=== PATIENT | female | born 1975 | race Caucasian/White ===

== ENCOUNTER 2017-04-17 16:42 | Emergency (ER) | payer OTHER ==
[2017-04-17 16:53] VITALS: BP 156/96; PULSE 108; TEMP 98.4; BMI 25.0
--- NOTE | 2017-04-17 16:56 | PDOC ---
Rapid Medical Evaluation Time Seen by Provider: 04/17/17 16:50 Medical Evaluation: Allergies Allergy/AdvReac Type Severity Reaction Status Date / Time amoxicillin trihydrate Allergy Mild Hives Verified 02/24/14 16:30 [From Augmentin] potassium clavulanate Allergy Mild Hives Verified 02/24/14 16:30 [From Augmentin] 04/17/17 16:51 Pt presents to the ED:anxiety, ran out of ativan 2 days during transition of new drs, states has not eaten 2 days Pt on brief exam: slightly tachycardic at 108, Pt ordered for: ua, utox, upreg Pt to proceed to the ED Discharge Disposition - Diagnosis Anxiety - Referrals - Patient Instructions - Post Discharge Activity
[2017-04-17 17:32] LABS: URINE APPEARANCE SLCLOUDY; URINE BILIRUBIN NEGATIVE (NEGATIVE); URINE BLOOD NEGATIVE (NEGATIVE); URINE COLOR LTYELLOW; URINE GLUCOSE (UA) NEGATIVE (NEGATIVE); URINE KETONE NEGATIVE (NEGATIVE); URINE LEUK ESTERASE NEGATIVE (NEGATIVE); URINE NITRITE NEGATIVE (NEGATIVE); URINE PROTEIN NEGATIVE (NEGATIVE); URINE UROBILINOGEN NEGATIVE mg/dL (0.2-1.0)
[2017-04-17 17:42] LABS: COCAINE, UR POSITIVE ng/ml (CUTOFF=300); METHADONE, UR NEGATIVE ng/ml (CUTOFF=300); PHENCYCLIDINE,URINE NEGATIVE ng/ml (CUTOFF=25); URINE AMPHETAMINES NEGATIVE ng/ml (CUTOFF=500); URINE BARBITURATES NEGATIVE ng/ml (CUTOFF=200); URINE BENZODIAZEPINES NEGATIVE ng/ml (CUTOFF=200)
[2017-04-17 17:43] LABS: OPIATES, URI POSITIVE ng/ml (CUTOFF=300)
[2017-04-17 17:56] LABS: HCG,QUALITATIVE URINE NEGATIVE
[2017-04-17] MEDS ORDERED: LORazepam 0.5 MG TABLET PO ONE (18:30)
--- NOTE | 2017-04-17 18:36 | PDOC ---
Attending Attestation - Resident Resident Name: GzumanMarty - ED Attending Attestation I have performed the following: I have examined & evaluated the patient, The case was reviewed & discussed with the resident, I agree w/resident's findings & plan, Exceptions are as noted - HPI HPI: 04/17/17 18:35 41 yo female in no acute distress seeks ativan for a panic attack HPI she has a h/o anxiety and takes ativan which she states she ran out off -pt id alert and conversant and in no acute distress - Physicial Exam PE: 04/17/17 18:36 wnwd 41 yo female seated on gurney. Appropriate affect -denies any suicidal ideology head ncat eyes german eomi neck supple lungs cta b/l cvs [id number] abd soft,nontender ext no edema,no rashes neuro axox3,ambulatory,no ataxia,motor stength 5/5 b/l psych ,calm,focused and fluent speech - Medical Decision Making 04/17/17 19:00 IMP anxiety plan anti anxiety meds recommend calling her psych center and getting an earlier appt
--- NOTE | 2017-04-17 18:37 | PDOC ---
History of Present Illness - General Chief Complaint: Psychiatric Stated Complaint: PANIC ATTACK Time Seen by Provider: 04/17/17 16:50 History Source: Patient Exam Limitations: No Limitations - History of Present Illness Initial Comments: 41F with pmh of Bipolar disorder and Panic disorder present to the ED after running out of meds lorazepam and Lurasidone yesterday. PAtient states that she has an appointment next week at her new psychiatric clinic on [address] [place]. She had a panic attack earlier today and would like a dose of ativan. Past History - Past Medical History Allergies/Adverse Reactions: Allergies amoxicillin trihydrate [From Augmentin] Allergy (Mild, Verified 04/17/17 16:50) Hives potassium clavulanate [From Augmentin] Allergy (Mild, Verified 04/17/17 16:50) Hives Home Medications: Ambulatory Orders Atorvastatin Ca [Lipitor] 20 mg PO DAILY 10/18/11 Insulin Lispro [Humalog] 30 unit SQ AM 10/18/11 Insulin Lispro [Humalog] 45 unit SQ HS 10/18/11 Lorazepam [Ativan] 2 mg PO QID 10/18/11 Oxycodone HCl/Acetaminophen [Percocet 5-325 mg Tablet] 1 - 2 combo PO Q4H Oxycodone HCl/Acetaminophen [Percocet 5-325 mg Tablet] 1 - 2 combo PO Q6H #20 tablet 10/18/11 Zolpidem Tartrate [Ambien] 10 mg PO HS 10/18/11 Ciprofloxacin [Cipro -] 500 mg PO Q12H #20 tablet 02/24/14 Levetiracetam [Keppra -] 500 mg PO DAILY 02/24/14 Oxycodone HCl/Acetaminophen [Percocet 5-325 mg Tablet -] 1 tab PO Q6H PRN #4 tablet 02/24/14 LMP: 10/15/11 - Social History Smoking History: No Smoking Status: Former smoker Number of Cigarettes Per Day: 0 Alcohol Use: none Drug Use: none *Review of Systems - Review of Systems Able to Perform ROS?: Yes Constitutional: No: Symptoms Reported HEENTM: No: Symptoms Reported Respiratory: No: Symptoms reported Cardiac (ROS): No: Symptoms Reported ABD/GI: No: Symptoms Reported : No: Symptoms Reported Musculoskeletal: No: Symptoms Reported Integumentary: No: Symptoms Reported Neurological: No: Symptoms reported Psychiatric: Yes: Anxiety, Depression, Emotional Problems, Mood Swings All Other Systems: Reviewed and Negative *Physical Exam - Vital Signs Last Vital Signs Temp Pulse Resp BP Pulse Ox 98.4 F 108 H 17 156/96 96 04/17/17 16:50 04/17/17 16:50 04/17/17 16:50 04/17/17 16:50 04/17/17 16:50 - Physical Exam General Appearance: Yes: Nourished, Appropriately Dressed. No: Alcohol on Breath HEENT: positive: EOMI, SARWAT, Normal ENT Inspection Neck: negative: Tender Respiratory/Chest: positive: Lungs Clear, Normal Breath Sounds. negative: Chest Tender, Respiratory Distress Cardiovascular: positive: Regular Rhythm, S1, S2, Tachycardia Gastrointestinal/Abdominal: positive: Normal Bowel Sounds, Flat, Soft. negative : Tender Musculoskeletal: positive: Normal Inspection Extremity: positive: Normal Capillary Refill Integumentary: positive: Normal Color, Dry, Warm Neurologic: positive: Fully Oriented, Alert, Normal Mood/Affect, Normal Response , Motor Strength 5/5 Plan - Progress Note Progress Note: 04/17/17 18:41 Patient given .5mg Ativan, Counseled to go to the [facility] for longer prescription of Psych meds. - Order(s) Order(s): Orders last 12 hours Category Date Time Status EKG [ELECTROCARDIOGRAM] [CARD] Stat Cardiology 04/17/17 18:00 Ordered - Laboratory Lab/Micro Results: 04/17/17 04/17/17 17:10 17:10 Urine Color Ltyellow Urine Appearance Slcloudy Urine pH 6.0 Ur Specific [place] 1.010 Urine Protein Negative Urine Glucose (UA) Negative Urine Ketones Negative Urine Blood Negative Urine Nitrite Negative Urine Bilirubin Negative Urine Urobilinogen Negative Ur Leukocyte Esterase Negative Urine HCG, Qual Negative Opiates Screen Positive Methadone Screen Negative Barbiturate Screen Negative Phencyclidine Screen Negative Ur Amphetamines Screen Negative MDMA (Ecstasy) Screen Negative Benzodiazepines Screen Negative Cocaine Screen Positive U Marijuana (THC) Screen Negative *DC/Admit/Observation/Transfer Diagnosis at time of Disposition: Anxiety - Discharge Dispostion Disposition: HOME Admit: No - Referrals Referrals: Carlo Akers MD [Primary Care Provider] - - Patient Instructions Printed Discharge Instructions: Anxiety and Panic Attacks (Alternative Therapy) , Yoga May Help Reduce Anxiety and Stress Additional Instructions: Please come back to the ED for any new, worsening or concerning symptoms. Go to [facility] For any psychiatric help with medication or otherwise. - Post Discharge Activity
[2017-04-17] MEDS ORDERED: LORazepam 0.5 MG TABLET ONE (18:58)
== END 2017-04-17 19:01 | disposition home or self-care (01) ==
LOC: JER 16:42
DX: F41.9 Anxiety disorder, unspecified (principal); F31.9 Bipolar disorder, unspecified
CPT/HCPCS: 80307; 81003; 84703; 99281-25

== ENCOUNTER 2017-07-11 17:05 | Emergency (ER) | payer OTHER ==
[2017-07-11 17:35] VITALS: BP 136/100; PULSE 120; TEMP 99.8; BMI 24.2
--- NOTE | 2017-07-11 17:37 | PDOC ---
Rapid Medical Evaluation Time Seen by Provider: 07/11/17 17:32 Medical Evaluation: Allergies Allergy/AdvReac Type Severity Reaction Status Date / Time amoxicillin trihydrate Allergy Mild Hives Verified 07/11/17 17:32 [From Augmentin] potassium clavulanate Allergy Mild Hives Verified 07/11/17 17:32 [From Augmentin] 07/11/17 17:34 I have performed a brief in-person evaluation of this patient. The patient presents with a chief complaint of infection of lesion on face. Patient reports pimples noted under left eye 2 days ago, states she placed a warm compress to the area and it became inflammed, erythematous and painful. Denies blurred vision Pertinent physical exam finding are +redness and swelling noted under left eye, PERRLA, EOMI lungs clear bilaterally I will defer orders to provider caring for patient The patient will proceed to the ED for further evaluation. Discharge Disposition - Referrals Referrals: Cynthia Casper [Primary Care Provider] - - Patient Instructions - Post Discharge Activity
--- NOTE | 2017-07-11 18:54 | PDOC ---
History of Present Illness <Amalia Pool - Last Filed: 07/11/17 19:50> - General History Source: Patient Exam Limitations: No Limitations - History of Present Illness Initial Comments: 07/11/17 19:11 The patient is a 41 year old female, with a significant past medical history of chronic back pain, hypertension, and mood disorders, who presents to the emergency department with, four days of left eye swelling and pain. As per patient, she had what she believe was a pimple on her left lower eye which she popped four days ago. Since then she reports worsening swelling around the lesion of the eye with mild periorbital edema and associated pain. The patient reports putting hydrocortisone cream and warm compresses to the eye. She denies recent fevers, chills, headache or dizziness. She denies recent nausea, vomit, diarrhea or constipation. She denies recent dysuria, frequency, urgency or hematuria. She denies recent chest pain or shortness of breath. Social history: Former smoker. Denies EtOH use and recreational drug use. Primary Care Physician: Dr. Casper <Vani Monahan - Last Filed: 07/11/17 19:59> - General Chief Complaint: Eye Problem Stated Complaint: Eye Problem Time Seen by Provider: 07/11/17 17:32 Past History - Past Medical History COPD: No Diabetes: Yes Seizures: Yes - Surgical History Neurologic Surgery: Yes Orthopedic Surgery: Yes (spinal fusion) - Suicide/Smoking/Psychosocial Hx Smoking Status: No Smoking History: Former smoker Have you smoked in the past 12 months: No Number of Cigarettes Smoked Daily: 0 Information on smoking cessation initiated: No Hx Alcohol Use: No Drug/Substance Use Hx: No <Amalia Pool - Last Filed: 07/11/17 19:50> <Vani Monahan - Last Filed: 07/11/17 19:59> - Past Medical History Allergies/Adverse Reactions: Allergies Allergy/AdvReac Type Severity Reaction Status Date / Time amoxicillin trihydrate Allergy Mild Hives Verified 07/11/17 17:32 [From Augmentin] potassium clavulanate Allergy Mild Hives Verified 07/11/17 17:32 [From Augmentin] Home Medications: Ambulatory Orders Atorvastatin Ca [Lipitor] 20 mg PO DAILY 10/18/11 Insulin Lispro [Humalog] 30 unit SQ AM 10/18/11 Insulin Lispro [Humalog] 45 unit SQ HS 10/18/11 LORazepam [Ativan] 2 mg PO QID 10/18/11 Oxycodone HCl/Acetaminophen [Percocet 5-325 mg Tablet] 1 - 2 combo PO Q6H #20 tablet 10/18/11 Albuterol Sulfate Inhaler - [Ventolin HFA Inhaler -] 1 - 2 inh PO Q4H 07/11/17 Sulfamethoxazole/Trimethoprim [Bactrim Ds -] 1 tab PO BID #20 tablet 07/11/17 Review of Systems - Review of Systems Able to Perform ROS?: Yes Comments:: 07/11/17 19:11 CONSTITUTIONAL: Absent: fever, no chills, no fatigue EYES: Present: Edema and pain to the left eye. Absent: visual changes ENT: Absent: ear pain, no sore throat CARDIOVASCULAR: Absent: chest pain, no palpitations RESPIRATORY: Absent: cough, no SOB GI: Absent: abdominal pain, no nausea, no vomiting, no constipation, no diarrhea GENITOURINARY: Absent: dysuria, no frequency, no hematuria MUSKULOSKELETAL: Absent: back pain, no arthralgia, no myalgia SKIN: Absent: rash NEURO: Absent: headache All Other Systems: Reviewed and Negative <Vani Monahan - Last Filed: 07/11/17 19:59> *Physical Exam - Vital Signs Last Vital Signs Temp Pulse Resp BP Pulse Ox 99.8 F H 120 H 19 136/100 97 07/11/17 17:32 07/11/17 17:32 07/11/17 17:32 07/11/17 17:32 07/11/17 17:32 <Amalia Pool - Last Filed: 07/11/17 19:50> - Vital Signs Last Vital Signs Temp Pulse Resp BP Pulse Ox 99.8 F H 120 H 19 136/100 97 07/11/17 17:32 07/11/17 17:32 07/11/17 17:32 07/11/17 17:32 07/11/17 17:32 - Physical Exam Comments: 07/11/17 19:12 GENERAL: Well-appearing, well-nourished. No apparent distress. (+)HEENT: +Swelling under the left eye with a small punctate. Discoloration with edema, erythema, and a dry patch under the left eye without cellulitis and streaking. Mild periorbital edema. PERRL, EOM intact. CARDIOVASCULAR: Normal S1, S2. Regular rate and rhythm. PULMONARY: Clear to auscultation bilaterally. ABDOMEN: Soft, non-distended, non-tender. EXTREMITIES: Normal ROM in all four extremities. No gross deformities. SKIN: Warm, dry. No rash NEUROLOGICAL: No focal neurological deficits. <Vani Monahan - Last Filed: 07/11/17 19:59> Medical Decision Making - Medical Decision Making 07/11/17 19:50 A/P: Patient with lesion to left upper cheek under the eye with periorbital edema she reports having a small pimple and squeezed it 2 days ago, her cousin gave her hydrocortisone cream which he applied to the area and caused a topical burn. Patient with edema to the area. I have referred patient to dermatology she must be seen as soon as possible, I will start patient on Bactrim. I've asked patient to apply cool compresses to not rub or scratch or squeezing area. <Amalia Pool - Last Filed: 07/11/17 19:50> *DC/Admit/Observation/Transfer - Discharge Dispostion Admit: No <Amalia Pool - Last Filed: 07/11/17 19:50> - Attestations Scribe Attestion: 07/11/17 19:12 Documentation prepared by Vani Monahan, acting as medical biller coder for Amalia Pool NP. <Vani Monahan - Last Filed: 07/11/17 19:59> Diagnosis at time of Disposition: Skin lesion - Discharge Dispostion Disposition: HOME Condition at time of disposition: Stable - Prescriptions Prescriptions: Sulfamethoxazole/Trimethoprim [Bactrim Ds -] 1 tab PO BID #20 tablet - Referrals Referrals: Jayson Anna [Non Staff, Medical] - ([phone], they are located on the 5th floor of [address] [place] [address]. ) - Patient Instructions Additional Instructions: Please do not rub or scratch area, recommend follow-up with dermatology as soon as possible. Please call tomorrow for an appointment. - Post Discharge Activity Forms/Work/School Notes: Back to Work
== END 2017-07-11 19:12 | disposition home or self-care (01) ==
LOC: JERFT 17:05
DX: L98.8 Other specified disorders of the skin and subcutaneous tissue (principal)
CPT/HCPCS: 99281-25

== ENCOUNTER 2019-02-25 21:57 | Emergency (ER) | payer OTHER ==
--- NOTE | 2019-02-25 22:34 | PDOC ---
History of Present Illness - General Stated Complaint: BACK PAIN Time Seen by Provider: 02/25/19 22:17 History Source: Patient Exam Limitations: No Limitations Past History - Past Medical History Allergies/Adverse Reactions: Allergies Allergy/AdvReac Type Severity Reaction Status Date / Time amoxicillin trihydrate Allergy Mild Hives Verified 07/11/17 17:32 [From Augmentin] potassium clavulanate Allergy Mild Hives Verified 07/11/17 17:32 [From Augmentin] Home Medications: Ambulatory Orders Atorvastatin Ca [Lipitor] 20 mg PO DAILY 10/18/11 Insulin Lispro [Humalog] 30 unit SQ AM 10/18/11 Insulin Lispro [Humalog] 45 unit SQ HS 10/18/11 LORazepam [Ativan] 2 mg PO QID 10/18/11 Oxycodone HCl/Acetaminophen [Percocet 5-325 mg Tablet] 1 - 2 combo PO Q6H #20 tablet 10/18/11 Albuterol Sulfate Inhaler - [Ventolin HFA Inhaler -] 1 - 2 inh PO Q4H 07/11/17 Sulfamethoxazole/Trimethoprim [Bactrim Ds -] 1 tab PO BID #20 tablet 07/11/17 COPD: No Diabetes: Yes Seizures: Yes - Surgical History Neurologic Surgery: Yes Orthopedic Surgery: Yes (spinal fusion) - Psycho Social/Smoking Cessation Hx Smoking Status: No Smoking History: Former smoker Have you smoked in the past 12 months: No Number of Cigarettes Smoked Daily: 0 Hx Alcohol Use: No Drug/Substance Use Hx: No ED Treatment Course - LABORATORY CBC & Chemistry Diagram: 02/25/19 23:15 02/25/19 23:15 Medical Decision Making - Medical Decision Making 02/26/19 02:36 43 yo presents to the ED after a fall with right sided back pain. States daughter were present, did not hit head, denies CP, palpitations or SOB prior to or after the fall, denies ABARCA or any unilateral neuro deficits. Pt had recent MRI without cord compression, exam negative for concerning neuro findings. No stepoffs Pt able to ambulate right after the the fall and ambulates without difficulty in the ED EKG NSR without ischemic changes or arrhythmia Labs, EKG and CXR reviewed, neg for concerning findings 2 Trops neg Pt given toradol for pain states that the pain is still severe, offered oxycodone home does, pt states she needs "stronger IV medication" however is able to ambulate without difficulty Discussed with pt that she needs to follow up with pain management and [facility]. Discharge - Discharge Information Problems reviewed: Yes Clinical Impression/Diagnosis: Chronic low back pain, Vasovagal near syncope Condition: Stable Disposition: HOME - Admission No - Follow up/Referral Referrals: Cynthia Casper [Primary Care Provider] - - Patient Discharge Instructions Patient Printed Discharge Instructions: Low Back Pain Additional Instructions: Please see your [facility] and Primary Doctor within the next 48 hours. See your pain management doctor for control of your back pain. Please continue taking your home dosed medications as prescribed. Return to the closest ER for new or concerning findings including but not limited to: loss of consciousness, falls, chest pain, shortness of breath. Thank you - Post Discharge Activity
[2019-02-25 22:39] VITALS: BMI 26.9
[2019-02-25 23:25] LABS: BASO % 0.5 % (0-2.0); EOS % 1.3 % (0-4.5); HEMATOCRIT 34.9 % (32.4-45.2); HEMOGLOBIN 11.7 GM/dL (10.7-15.3); LYMPH % 20.5 % (8-40); MCH 32.5 pg (25.7-33.7); MCHC 33.4 g/dl (32.0-36.0); MEAN CELL VOLUME 97.3 fl (80-96); MEAN PLT VOLUME 6.8 fl (7.5-11.1); MONO % 5.7 % (3.8-10.2); PLATELET COUNT 321 K/MM3 (134-434); RBC 3.59 M/mm3 (3.60-5.2); WHITE BLOOD COUNT 11.5 K/mm3 (4.0-10.0)
[2019-02-25 23:38] LABS: INR 0.87 (0.83-1.09); PROTHROMBIN TIME (PATIENT) 10.3 SEC (9.7-13.0)
[2019-02-25 23:57] LABS: ALBUMIN 3.3 g/dl (3.4-5.0); ALK PHOS 72 U/L (45-117); ANION GAP 7 MMOL/L (8-16); BILIRUBIN,TOTAL 0.1 mg/dL (0.2-1); CALCIUM 8.8 mg/dL (8.5-10.1); CHLORIDE 104 mmol/L (98-107); CO2 30 mmol/L (21-32); CREATININE 0.7 mg/dL (0.55-1.3); GLUCOSE,RANDOM 112 mg/dL (74-106); N-TERMINAL BNP 8.2 pg/ml (5-125); POTASSIUM 3.6 mmol/L (3.5-5.1); SGOT/AST 22 U/L (15-37); SGPT/ALT 23 U/L (13-61); SODIUM 141 mmol/L (136-145); TOT PROT 6.8 g/dl (6.4-8.2)
[2019-02-26] MEDS ORDERED: KETOROLAC TROMETHAMINE 30 MG/1 ML VIAL IVPUSH ONE (00:32)
[2019-02-26] MEDS ORDERED: ONDANSETRON 4 MG/2 ML VIAL IVPUSH ONE (00:33)
[2019-02-26] MEDS ORDERED: KETOROLAC TROMETHAMINE 30 MG/1 ML VIAL ONE (00:35)
[2019-02-26] MEDS ORDERED: ONDANSETRON 4 MG/2 ML VIAL ONE (00:36)
--- NOTE | 2019-02-26 01:27 | PDOC ---
Documentation entered by Estuardo Hernández SCRIBE, acting as scribe for Yenni Diaz MD. Yenni Diaz MD: This documentation has been prepared by the Edgar jackson Xhesika, SCRIBE, under my direction and personally reviewed by me in its entirety. I confirm that the documentation accurately reflects all work, treatment, procedures, and medical decision making performed by me. Attending Attestation - Resident Resident Name: PradeepemanuelJoseluis - ED Attending Attestation I have performed the following: I have examined & evaluated the patient, The case was reviewed & discussed with the resident, I agree w/resident's findings & plan, Exceptions are as noted - HPI HPI: 02/25/19 22:52 The patient is a 43 year old female with a significant PMH of DM, seizures, chronic back pain s/p spinal fusion, and mood disorder who presents to the emergency department with lower back pain s/p fall. The patient states she passed out, fell and hit her back. Patient notes she took 3 percocets throughout the day. The patient denies chest pain, shortness of breath, headache. Denies fever, chills, cough, nausea, vomiting, diarrhea and constipation. Denies dysuria, frequency, urgency and hematuria. Allergies: amoxicillin trihydrate, potassium clavulanate Past surgical history: spinal fusion Primary Care Physician: Dr. Casper 02/26/19 LABS REVIEWED AND patient ambulating in the ED plan second troponin , if negative will d/c home - Physicial Exam PE: 02/25/19 22:54 GENERAL: Awake, alert, and fully oriented HEAD: No signs of trauma. No lacerations NECK: Normal ROM, supple, no lymphadenopathy, JVD, or masses LUNGS: Breath sounds equal, clear to auscultation bilaterally. No wheezes, and no crackles HEART: +slightly tachycardic. no murmurs, rubs or gallops ABDOMEN: Soft, nontender, normoactive bowel sounds. No guarding, no rebound. No masses EXTREMITIES: + R iliac crest pain to palpation. No pinpoint midline tenderness. No clubbing or cyanosis. No cords, erythema SKIN: Warm, Dry, normal turgor, no rashes or lesions noted. - Medical Decision Making 02/26/19 01:26 Patient is ambulating the ER after receiving Toradol Labs reviewed The plan is to do a repeat troponin and if it is negative she can go home
[2019-02-26 02:22] VITALS: BP 112/80; PULSE 98; TEMP 98.1
--- NOTE | 2019-02-26 10:36 | EKG ---
Test Reason : Blood Pressure : / mmHG Vent. Rate : 107 BPM Atrial Rate : 107 BPM P-R Int : 138 ms QRS Dur : 074 ms QT Int : 334 ms P-R-T Axes : 059 056 019 degrees QTc Int : 445 ms SINUS TACHYCARDIA NONSPECIFIC T WAVE ABNORMALITY ABNORMAL ECG Confirmed by MD ANNAMARIE, SARAH ([id number]) on 02/26/2019 10:36:03 AM Referred By: Confirmed By:SARAH DE LUNA MD
== END 2019-02-26 04:32 | disposition home or self-care (01) ==
LOC: JER 21:57
PROC: 3E033GC Introduction of Other Therapeutic Substance into Peripheral Vein, Percutaneous Approach (ICD-10-PCS; principal; 2019-02-25)
PROC: 3E0333Z Introduction of Anti-inflammatory into Peripheral Vein, Percutaneous Approach (ICD-10-PCS; 2019-02-25)
DX: M54.5 Low back pain (principal); R55 Syncope and collapse; W01.0XXA Fall on same level from slipping, tripping and stumbling without subsequent striking against object, initial encounter; Y93.89 Activity, other specified; Y92.89 Other specified places as the place of occurrence of the external cause; Y99.8 Other external cause status; E11.9 Type 2 diabetes mellitus without complications; Z79.4 Long term (current) use of insulin; G40.909 Epilepsy, unspecified, not intractable, without status epilepticus; E78.00 Pure hypercholesterolemia, unspecified; F39 Unspecified mood [affective] disorder; Z98.1 Arthrodesis status; Z88.1 Allergy status to other antibiotic agents; Z87.891 Personal history of nicotine dependence
CPT/HCPCS: 36415; 71046-TC-FY; 80053; 82550; 82962; 83880; 84484; 84703; 85025; 85610; 93005; 93010; 96374; 96375; 99284-25

== ENCOUNTER 2020-06-18 18:49 | Emergency (ER) | payer OTHER ==
[2020-06-18 19:08] VITALS: TEMP 98.6; BMI 23.5
[2020-06-18] MEDS ORDERED: IBUPROFEN 600 MG TABLET (FP) PO ONE ×2 (20:21→20:24)
[2020-06-18] MEDS ORDERED: LIDOCAINE 5% TOPICAL PATCH TP ONE (21:53)
[2020-06-18 21:55] VITALS: BP 149/94; PULSE 104
[2020-06-18] MEDS ORDERED: LIDOCAINE 5% TOPICAL PATCH ONE (21:56)
[2020-06-18] MEDS ORDERED: LIDOCAINE PATCH REMOVAL MC SCH (22:00)
== END 2020-06-18 22:40 | disposition home or self-care (01) ==
LOC: JER 18:49
DX: M54.5 Low back pain (principal)
CPT/HCPCS: 72131-TC; 84703; 99284-25; C9803; U0003

== ENCOUNTER 2020-08-11 12:26 | Emergency (ER) | payer OTHER ==
[2020-08-11 12:31] VITALS: TEMP 98.6; BMI 25.8
[2020-08-11] MEDS ORDERED: ONDANSETRON 4 MG/2 ML VIAL IVPUSH ONE (12:46)
[2020-08-11] MEDS ORDERED: SODIUM CHLORIDE 1,000 ML IV STA (12:46)
[2020-08-11] MEDS ORDERED: ONDANSETRON 4 MG/2 ML VIAL ONE ×2 (13:25→13:41)
[2020-08-11 13:30] LABS: BASO % 0.2 % (0-2.0); HEMATOCRIT 36.4 % (32.4-45.2); HEMOGLOBIN 12.7 GM/dL (10.7-15.3); LYMPH % 8.9 % (8-40); MCH 32.7 pg (25.7-33.7); MCHC 34.9 g/dl (32.0-36.0); MEAN CELL VOLUME 93.6 fl (80-96); MEAN PLT VOLUME 7.4 fl (7.5-11.1); MONO % 9.4 % (3.8-10.2); NEUT % 81.5 % (42.8-82.8); PLATELET COUNT 169 K/MM3 (134-434); RBC 3.89 M/mm3 (3.60-5.2); RDW 13.2 % (11.6-15.6); WHITE BLOOD COUNT 6.3 K/mm3 (4.0-10.0)
[2020-08-11] MEDS ORDERED: METOCLOPRAMIDE HCL INJECTION 10 MG/2 ML VIAL IVPUSH ONE (13:51)
[2020-08-11 13:52] LABS: BLOOD UREA NITROGEN 10.8 mg/dL (7-18); CALCIUM 8.7 mg/dL (8.5-10.1)
[2020-08-11 13:55] LABS: CREATININE 0.7 mg/dL (0.55-1.3)
[2020-08-11 13:57] LABS: BILIRUBIN,TOTAL 0.2 mg/dL (0.2-1); TOT PROT 7.9 g/dl (6.4-8.2)
[2020-08-11] MEDS ORDERED: METOCLOPRAMIDE HCL INJECTION 10 MG/2 ML VIAL ONE (14:09)
[2020-08-11 14:21] LABS: HCG,QUALITATIVE URINE Negative
[2020-08-11 14:22] LABS: EPI CELLS >36 /uL (0-25.1); HYALINE CASTS 9 /uL (0-3.1); PH,URINE 5.5 (5.0-8.0); URINE APPEARANCE CLOUDY; URINE BACTERIA 4116 /uL (0-1359); URINE BILIRUBIN 1+ (NEGATIVE); URINE COLOR DK YELLOW; URINE GLUCOSE (UA) NEGATIVE (NEGATIVE); URINE KETONE 1+ (NEGATIVE); URINE LEUK ESTERASE NEGATIVE (NEGATIVE); URINE NITRITE NEGATIVE (NEGATIVE); URINE PROTEIN 2+ (NEGATIVE); URINE WBC 21 /uL (0-25.8)
[2020-08-11 14:57] LABS: YEAST PRESENT (NEGATIVE)
[2020-08-11] MEDS ORDERED: LORazepam 2 MG/ML SDV VIAL IVPUSH ONE (15:01)
[2020-08-11] MEDS ORDERED: LORazepam 2 MG/ML SDV VIAL ONE (15:13)
[2020-08-11 16:05] VITALS: BP 122/76; PULSE 88
== END 2020-08-11 16:04 | disposition home or self-care (01) ==
LOC: JER 12:26
PROC: 3E033NZ Introduction of Analgesics, Hypnotics, Sedatives into Peripheral Vein, Percutaneous Approach (ICD-10-PCS; principal; 2020-08-11)
PROC: 3E033GC Introduction of Other Therapeutic Substance into Peripheral Vein, Percutaneous Approach (ICD-10-PCS; 2020-08-11)
PROC: 3E033GC Introduction of Other Therapeutic Substance into Peripheral Vein, Percutaneous Approach (ICD-10-PCS; 2020-08-11)
PROC: 3E0337Z Introduction of Electrolytic and Water Balance Substance into Peripheral Vein, Percutaneous Approach (ICD-10-PCS; 2020-08-11)
DX: N39.0 Urinary tract infection, site not specified (principal); R11.2 Nausea with vomiting, unspecified
CPT/HCPCS: 36415; 80053; 81003; 83690; 84703; 85025; 87086; 96361; 96374; 96375; 99284-25

== ENCOUNTER 2021-01-29 12:03 | Emergency (ER) | payer OTHER ==
[2021-01-29 12:09] VITALS: BP 141/95; PULSE 101; TEMP 98.6; BMI 25.8
[2021-01-29] MEDS ORDERED: LIDOCAINE 5% TOPICAL PATCH TP ONE (14:21)
[2021-01-29] MEDS ORDERED: METHOCARBAMOL 500 MG TABLET PO ONE (14:21)
[2021-01-29] MEDS ORDERED: KETOROLAC TROMETHAMINE 60 MG/2 ML VIAL IM ONE (14:21)
[2021-01-29] MEDS ORDERED: KETOROLAC TROMETHAMINE 60 MG/2 ML VIAL ONE (14:25)
[2021-01-29] MEDS ORDERED: LIDOCAINE 5% TOPICAL PATCH ONE (14:26)
[2021-01-29] MEDS ORDERED: METHOCARBAMOL 500 MG TABLET ONE (14:26)
== END 2021-01-29 16:06 | disposition home or self-care (01) ==
LOC: JERFT 12:03
PROC: 3E0233Z Introduction of Anti-inflammatory into Muscle, Percutaneous Approach (ICD-10-PCS; principal; 2021-01-29)
DX: M54.42 Lumbago with sciatica, left side (principal)
CPT/HCPCS: 96372; 99284-25

== ENCOUNTER 2022-01-23 03:02 | Emergency (ER) | payer OTHER ==
[2022-01-23] MEDS ORDERED: LIDOCAINE VISCOUS 2% ORAL/TOP 100 ML BOTTLE MM ONE (03:24)
[2022-01-23] MEDS ORDERED: ONDANSETRON 4 MG/2 ML VIAL IVPUSH ONE (03:24)
[2022-01-23] MEDS ORDERED: FAMOTIDINE 20 MG/50 ML IVPB 20 MG/50 ML MG IVPB ONE ×2 (03:24→03:52)
[2022-01-23] MEDS ORDERED: MAG HYDROX/AL HYDROX/SIMETH 30 ML UNIT-DOSE CUP PO ONE (03:24)
[2022-01-23] MEDS ORDERED: SODIUM CHLORIDE 0.9% 500 ML INFUS.BAG IV ONE (03:49)
[2022-01-23] MEDS ORDERED: ONDANSETRON 4 MG/2 ML VIAL ONE (03:52)
[2022-01-23] MEDS ORDERED: LIDOCAINE VISCOUS 2% ORAL/TOP 15 ML UNIT-DOSE CUP ONE (03:52)
[2022-01-23] MEDS ORDERED: MAG HYDROX/AL HYDROX/SIMETH 30 ML UNIT-DOSE CUP ONE (03:52)
[2022-01-23 03:57] VITALS: BMI 27.6
[2022-01-23] MEDS ORDERED: ACETAMINOPHEN 1000 MG/100 ML BAG IVPB ONE (04:33)
[2022-01-23 04:37] LABS: BASO % 0.8 % (0-2.0); EOS % 1.4 % (0-4.5); HEMATOCRIT 35.3 % (32.4-45.2); HEMOGLOBIN 11.9 GM/dL (10.7-15.3); LYMPH % 13.8 % (8-40); MCH 32.4 pg (25.7-33.7); MCHC 33.6 g/dl (32.0-36.0); MEAN CELL VOLUME 96.2 fl (80-96); MEAN PLT VOLUME 6.5 fl (7.5-11.1); MONO % 5.3 % (3.8-10.2); NEUT % 78.7 % (42.8-82.8); PLATELET COUNT 375 10^3/uL (134-434); RBC 3.67 M/mm3 (3.60-5.2); RDW 13.4 % (11.6-15.6); WHITE BLOOD COUNT 10.9 K/mm3 (4.0-10.0)
[2022-01-23] MEDS ORDERED: ACETAMINOPHEN INJECTION 100 ML IVPB ONE (04:44)
[2022-01-23 04:49] LABS: ALBUMIN 3.8 g/dl (3.4-5.0); BLOOD UREA NITROGEN 24.3 mg/dL (7-18)
[2022-01-23 04:51] LABS: CREATININE 0.9 mg/dL (0.55-1.3)
[2022-01-23 04:53] LABS: BILIRUBIN,TOTAL 0.2 mg/dL (0.2-1); TOT PROT 7.5 g/dl (6.4-8.2)
[2022-01-23] MEDS ORDERED: PANTOPRAZOLE 40 MG TABLET PO ONE (05:31)
[2022-01-23] MEDS ORDERED: PANTOPRAZOLE 20 MG TABLET PO ONE (05:33)
[2022-01-23 05:40] VITALS: BP 136/78; PULSE 72; RESP 18
== END 2022-01-23 05:39 | disposition home or self-care (01) ==
LOC: JER 03:02
PROC: 3E033GC Introduction of Other Therapeutic Substance into Peripheral Vein, Percutaneous Approach (ICD-10-PCS; principal; 2022-01-23)
DX: K29.00 Acute gastritis without bleeding (principal)
CPT/HCPCS: 36415; 71045-TC-FY; 80053; 82962; 83690; 84484; 84703; 85025; 93005; 93010; 96365; 96375; 99285-25

== ENCOUNTER 2022-01-23 11:22 | Inpatient (IN) | payer OTHER ==
[2022-01-23] MEDS ORDERED: ONDANSETRON 4 MG/2 ML VIAL IVPUSH ONE ×2 (12:34→15:11)
[2022-01-23] MEDS ORDERED: FAMOTIDINE 20 MG/50 ML IVPB 20 MG/50 ML MG IVPB ONE ×2 (12:34→12:41)
[2022-01-23] MEDS ORDERED: morphine CARPU-JECT 2 MG/1 ML DISP.SYRIN IVPUSH ONE ×2 (12:35→19:49)
[2022-01-23] MEDS ORDERED: SODIUM CHLORIDE 0.9% 500 ML INFUS.BAG IV ONE (12:35)
[2022-01-23] MEDS ORDERED: ONDANSETRON 4 MG/2 ML VIAL ONE ×3 (12:40→18:08)
[2022-01-23] MEDS ORDERED: KETOROLAC TROMETHAMINE 30 MG/1 ML VIAL IVPUSH ONE (15:11)
[2022-01-23] MEDS ORDERED: SUCRALFATE 1 GM TABLET (FP) ONE (15:49)
[2022-01-23] MEDS ORDERED: KETOROLAC TROMETHAMINE 30 MG/1 ML VIAL ONE (15:50)
[2022-01-23] MEDS: SUCRALFATE 1 GM/10 ML UNIT DOSE CUPS PO ONE ×2 (15:56→16:07)
[2022-01-23] MEDS ORDERED: SUCRALFATE 1 GM/10 ML UNIT DOSE CUPS PO ONE (16:06)
[2022-01-23] MEDS ORDERED: morphine CARPU-JECT 4 MG/1 ML DISP.SYRIN IVPUSH ONE (18:01)
[2022-01-23] MEDS ORDERED: morphine SULFATE 4 MG/ML VIAL ONE (18:06)
[2022-01-23] MEDS: SODIUM CHLORIDE 1,000 ML IV SCH (18:07)
[2022-01-23] MEDS ORDERED: METOCLOPRAMIDE HCL INJECTION 10 MG/2 ML VIAL IVPUSH ONE (19:49)
[2022-01-23] MEDS ORDERED: METOCLOPRAMIDE HCL INJECTION 10 MG/2 ML VIAL ONE (19:56)
[2022-01-23] MEDS: INSULIN SLIDING SCALE (NOVOLOG) 1 VIAL SQ SCH (22:00)
[2022-01-23] MEDS ORDERED: ALBUTEROL SO4 HFA INHALER IH PRN (23:19)
[2022-01-23] MEDS ORDERED: TRIMETHOBENZAMIDE HCL 200MG/2ML INJ IM ONE (23:44)
[2022-01-23] MEDS: TRIMETHOBENZAMIDE HCL 200MG/2ML INJ IM PRN (23:54)
[2022-01-23] MEDS: clonazePAM 0.5 MG TABLET PO SCH (23:54)
[2022-01-24] MEDS: INSULIN SLIDING SCALE (NOVOLOG) 1 VIAL SQ SCH ×3 (02:19→13:52)
[2022-01-24 08:45] LABS: BASO % 0.2 % (0-2.0); EOS % 0.1 % (0-4.5); HEMATOCRIT 31.7 % (32.4-45.2); HEMOGLOBIN 10.6 GM/dL (10.7-15.3); LYMPH % 6.7 % (8-40); MCHC 33.4 g/dl (32.0-36.0); MEAN CELL VOLUME 95.8 fl (80-96); MEAN PLT VOLUME 6.6 fl (7.5-11.1); MONO % 9.3 % (3.8-10.2); NEUT % 83.7 % (42.8-82.8); PLATELET COUNT 372 10^3/uL (134-434); RBC 3.31 M/mm3 (3.60-5.2); RDW 13.2 % (11.6-15.6); WHITE BLOOD COUNT 13.7 K/mm3 (4.0-10.0)
[2022-01-24 08:50] LABS: INR 1.28 (0.83-1.09); PROTHROMBIN TIME (PATIENT) 14.7 SEC (9.7-13.0)
[2022-01-24 08:52] LABS: ACTIVATED PTT 28.5 SECONDS (25.2-36.5)
[2022-01-24] MEDS ORDERED: TRIMETHOBENZAMIDE HCL 200MG/2ML INJ IM ONE (09:04)
[2022-01-24] MEDS ORDERED: PANTOPRAZOLE SODIUM 40 MG VIAL ONE (09:04)
[2022-01-24] MEDS ORDERED: clonazePAM 0.5 MG TABLET ONE (09:04)
[2022-01-24 09:12] LABS: CALCIUM 8.6 mg/dL (8.5-10.1)
[2022-01-24 09:13] LABS: BLOOD UREA NITROGEN 7.2 mg/dL (7-18)
[2022-01-24 09:16] LABS: CREATININE 0.5 mg/dL (0.55-1.3); PHOSPHOROUS 2.3 mg/dL (2.5-4.9)
[2022-01-24] MEDS ORDERED: ACETAMINOPHEN INJECTION 100 ML IVPB ONE (09:17)
[2022-01-24 09:19] LABS: MAGNESIUM 1.8 mg/dL (1.8-2.4)
[2022-01-24] MEDS: clonazePAM 0.5 MG TABLET PO SCH (09:22)
[2022-01-24] MEDS: TRIMETHOBENZAMIDE HCL 200MG/2ML INJ IM PRN (09:22)
[2022-01-24] MEDS: ACETAMINOPHEN 1000 MG/100 ML BAG IVPB PRN (09:25)
[2022-01-24] MEDS ORDERED: PANTOPRAZOLE SODIUM 40 MG VIAL IVPUSH SCH (10:00)
[2022-01-24] MEDS ORDERED: LURASIDONE HCL 40 MG TABLET PO SCH (10:00)
[2022-01-24] MEDS ORDERED: risperiDONE 1 MG TABLET PO SCH (10:00)
[2022-01-24 13:31] VITALS: BMI 27.8
[2022-01-24] MEDS: SODIUM CHLORIDE 1,000 ML IV SCH ×2 (15:17→18:40)
[2022-01-24] MEDS: KCL 10 MEQ IVPB 10 MEQ/100 ML INFUS.BAG IVPB SCH ×2 (15:19→16:12)
[2022-01-24] MEDS ORDERED: PROPOFOL 20 ML ONE ×2 (18:46→23:15)
[2022-01-24] MEDS ORDERED: ROCURONIUM BROMIDE 50 MG/5 ML SYRINGE ONE (18:46)
[2022-01-24] MEDS ORDERED: MIDAZOLAM HCL 2 MG/2 ML SINGLE DOSE VIAL ONE (18:47)
[2022-01-24] MEDS ORDERED: SUCCINYLCHOLINE CHLORIDE 200 MG/10 ML SYRINGE ONE (18:48)
[2022-01-24] MEDS ORDERED: ePHEDrine SULFATE 50 MG/1 ML AMPULE ONE (18:48)
[2022-01-24] MEDS ORDERED: BUPIVACAINE HCL/PF 0.5% (5MG/ML) 10 ML VIAL ONE (18:51)
[2022-01-24] MEDS ORDERED: ONDANSETRON 4 MG/2 ML VIAL ONE (20:07)
[2022-01-24] MEDS ORDERED: FAMOTIDINE 20 MG/50 ML IVPB 20 MG/50 ML MG IVPB ONE ×2 (20:08→21:53)
[2022-01-24] MEDS ORDERED: ONDANSETRON 4 MG/2 ML VIAL IVPUSH PRN (21:53)
[2022-01-24] MEDS ORDERED: ATORVASTATIN CA 40 MG TABLET (FP) PO SCH (22:00)
[2022-01-24] MEDS ORDERED: LACTATED RINGERS SOLUTION 1,000 ML IV SCH (22:00)
[2022-01-24] MEDS ORDERED: BUPIVACAINE HCL/PF 0.25% (2.5MG/ML) 10 ML VIAL IJ ONE (22:50)
[2022-01-24] MEDS ORDERED: NEOSTIGMINE METHYLSULFATE 0.5 MG/ML - 10 ML MDV ONE (23:29)
[2022-01-24] MEDS ORDERED: KETOROLAC TROMETHAMINE 30 MG/1 ML VIAL ONE (23:50)
[2022-01-25] MEDS: ACETAMINOPHEN 1000 MG/100 ML BAG IVPB PRN (00:05)
[2022-01-25] MEDS ORDERED: ACETAMINOPHEN INJECTION 100 ML IVPB ONE (00:09)
[2022-01-25] MEDS: INSULIN SLIDING SCALE (NOVOLOG) 1 VIAL SQ SCH ×5 (00:13→20:27)
[2022-01-25] MEDS: clonazePAM 0.5 MG TABLET PO SCH ×3 (00:14→21:16)
[2022-01-25] MEDS ORDERED: ONDANSETRON 4 MG/2 ML VIAL IVPUSH PRN (00:17)
[2022-01-25] MEDS ORDERED: TRIMETHOBENZAMIDE HCL 200MG/2ML INJ IM PRN (00:17)
[2022-01-25] MEDS ORDERED: ALBUTEROL SO4 HFA INHALER IH PRN (00:17)
[2022-01-25] MEDS: LACTATED RINGERS SOLUTION 1,000 ML IV SCH ×2 (01:43→12:23)
[2022-01-25] MEDS: PANTOPRAZOLE SODIUM 40 MG VIAL IVPUSH SCH (09:44)
[2022-01-25] MEDS: risperiDONE 1 MG TABLET PO SCH (09:45)
[2022-01-25 10:59] LABS: HEMATOCRIT 29.7 % (32.4-45.2); HEMOGLOBIN 10.3 GM/dL (10.7-15.3); MCH 33.5 pg (25.7-33.7); MCHC 34.7 g/dl (32.0-36.0); MEAN CELL VOLUME 96.6 fl (80-96); MEAN PLT VOLUME 6.4 fl (7.5-11.1); PLATELET COUNT 332 10^3/uL (134-434); RBC 3.07 M/mm3 (3.60-5.2); WHITE BLOOD COUNT 13.1 K/mm3 (4.0-10.0)
[2022-01-25 11:35] LABS: BLOOD UREA NITROGEN 5.1 mg/dL (7-18); CALCIUM 8.9 mg/dL (8.5-10.1)
[2022-01-25 11:38] LABS: CREATININE 0.4 mg/dL (0.55-1.3)
[2022-01-25 11:40] LABS: BILIRUBIN,TOTAL 0.3 mg/dL (0.2-1); TOT PROT 6.3 g/dl (6.4-8.2)
[2022-01-25 11:44] LABS: ALBUMIN 2.9 g/dl (3.4-5.0)
[2022-01-25 11:53] LABS: ANISOCYTOSIS 0; HELMET CELLS 0; HOWELL-JOLLY BODIES 0; MACROCYTOSIS 0; OVALOCYTE 0; ROULEAU 0; SICKELED CELLS 0; TARGET CELLS 0; TEAR DROP CELLS 0; TOXIC GRANULATION 0
[2022-01-25] MEDS ORDERED: oxyCODONE HCL 5 MG TABLET PO PRN (13:18)
[2022-01-25] MEDS ORDERED: HYDROmorphone HCL CARPU-JECT 2 MG/1 ML DISP.SYRIN IVPB ONE (13:19)
[2022-01-25] MEDS ORDERED: HYDROmorphone HCl 2 MG/ML VIAL IVPB ONE (13:45)
[2022-01-25] MEDS: NAPH,MB-DB/K PH,MBDB POWDER PACKET PO SCH ×2 (13:55→21:17)
[2022-01-25] MEDS: LURASIDONE HCL 40 MG TABLET PO SCH (14:38)
[2022-01-25] MEDS: oxyCODONE HCL 5 MG TABLET PO PRN ×2 (17:00→20:35)
[2022-01-25] MEDS ORDERED: ACETAMINOPHEN 1000 MG/100 ML BAG IVPB ONE (17:51)
[2022-01-25] MEDS: ONDANSETRON 4 MG/2 ML VIAL IVPUSH PRN (18:01)
[2022-01-25] MEDS ORDERED: ATORVASTATIN CA 40 MG TABLET (FP) PO SCH (22:00)
[2022-01-26] MEDS: ONDANSETRON 4 MG/2 ML VIAL IVPUSH PRN (00:55)
[2022-01-26] MEDS: LACTATED RINGERS SOLUTION 1,000 ML IV SCH (02:00)
[2022-01-26] MEDS: oxyCODONE HCL 5 MG TABLET PO PRN ×3 (02:01→15:00)
[2022-01-26] MEDS: INSULIN SLIDING SCALE (NOVOLOG) 1 VIAL SQ SCH ×3 (02:06→15:41)
[2022-01-26] MEDS: PANTOPRAZOLE SODIUM 40 MG VIAL IVPUSH SCH (09:52)
[2022-01-26 09:58] LABS: BASO % 0.3 % (0-2.0); EOS % 1.6 % (0-4.5); HEMATOCRIT 29.4 % (32.4-45.2); LYMPH % 17.2 % (8-40); MCH 32.8 pg (25.7-33.7); MCHC 33.9 g/dl (32.0-36.0); MEAN CELL VOLUME 96.8 fl (80-96); MEAN PLT VOLUME 6.8 fl (7.5-11.1); MONO % 5.7 % (3.8-10.2); NEUT % 75.2 % (42.8-82.8); PLATELET COUNT 373 10^3/uL (134-434); RBC 3.04 M/mm3 (3.60-5.2); RDW 13.3 % (11.6-15.6); WHITE BLOOD COUNT 9.8 K/mm3 (4.0-10.0)
[2022-01-26 10:22] LABS: ALBUMIN 2.9 g/dl (3.4-5.0); CALCIUM 8.4 mg/dL (8.5-10.1)
[2022-01-26 10:23] LABS: BLOOD UREA NITROGEN 5.5 mg/dL (7-18)
[2022-01-26 10:25] LABS: CREATININE 0.5 mg/dL (0.55-1.3)
[2022-01-26 10:26] LABS: PHOSPHOROUS 2.5 mg/dL (2.5-4.9)
[2022-01-26 10:27] LABS: BILIRUBIN,TOTAL 0.2 mg/dL (0.2-1); TOT PROT 6.3 g/dl (6.4-8.2)
[2022-01-26] MEDS: clonazePAM 0.5 MG TABLET PO SCH (10:28)
[2022-01-26] MEDS: risperiDONE 1 MG TABLET PO SCH (10:28)
[2022-01-26] MEDS: LURASIDONE HCL 40 MG TABLET PO SCH (10:28)
[2022-01-26 15:35] VITALS: BP 133/75; PULSE 102; RESP 20; TEMP 98
== END 2022-01-26 16:10 | disposition home or self-care (01) | DRG 419 ==
LOC: JER 11:22 → JERBED 19:40 → J8W 01-24 12:02
PROVIDERS: ADMIT Internal Medicine; ATTEND Family Medicine
PROC: 0FT44ZZ Resection of Gallbladder, Percutaneous Endoscopic Approach (ICD-10-PCS; principal; 2022-01-24 15:30)
DX: K80.00 Calculus of gallbladder with acute cholecystitis without obstruction (principal); E11.9 Type 2 diabetes mellitus without complications; I10 Essential (primary) hypertension; R56.9 Unspecified convulsions; R11.2 Nausea with vomiting, unspecified; F41.8 Other specified anxiety disorders; E87.6 Hypokalemia; E83.39 Other disorders of phosphorus metabolism; D72.829 Elevated white blood cell count, unspecified; E78.5 Hyperlipidemia, unspecified
CPT/HCPCS: 0241U-QW; 36415; 74177-TC; 76705-TC; 80048; 80053; 82962; 83735; 84100; 85025; 85610; 85730; 86850; 86900; 86901; 88304-TC; 94010; 94760; 99285-25; C9803-CS; J2794; Q9967; U0003; U0005

== ENCOUNTER 2023-10-17 05:25 | Emergency (ER) | payer OTHER ==
[2023-10-17 05:31] VITALS: BMI 24.9
[2023-10-17] MEDS ORDERED: LIDOCAINE 4% PATCH TP ONE (06:09)
[2023-10-17] MEDS ORDERED: ACETAMINOPHEN 500 MG TABLET (FP) ONE (06:10)
[2023-10-17] MEDS: LIDOCAINE 4% PATCH TP ONE (06:14)
[2023-10-17] MEDS: ACETAMINOPHEN 500 MG TABLET (FP) PO ONE (06:35)
[2023-10-17 08:06] VITALS: BP 109/78; PULSE 96; RESP 16; TEMP 97.6
[2023-10-17] MEDS ORDERED: diazePAM 2 MG TABLET ONE (08:08)
[2023-10-17] MEDS ORDERED: KETOROLAC TROMETHAMINE 30 MG/1 ML VIAL ONE (08:08)
[2023-10-17] MEDS: diazePAM 2 MG TABLET PO ONE (08:14)
[2023-10-17] MEDS: KETOROLAC TROMETHAMINE 30 MG/1 ML VIAL IM ONE (08:14)
[2023-10-17] MEDS ORDERED: LIDOCAINE PATCH REMOVAL MC ONE (18:00)
== END 2023-10-17 10:51 | disposition home or self-care (01) ==
LOC: JER 05:25
PROC: 3E0233Z Introduction of Anti-inflammatory into Muscle, Percutaneous Approach (ICD-10-PCS; principal; 2023-10-17)
DX: M54.50 Low back pain, unspecified (principal); M54.2 Cervicalgia; M25.511 Pain in right shoulder; M25.512 Pain in left shoulder; R20.2 Paresthesia of skin; R20.0 Anesthesia of skin
CPT/HCPCS: 84703; 96372; 99284-25